=== PATIENT | female | born 1980 | race Caucasian/White ===

== ENCOUNTER → 2018-08-04 | Outpatient (CLI) | payer OTHER ==
[2018-08-04 10:26] LABS: ABSOLUTE EOSINOPHILS 0.2 thou/uL (0.0-0.7); ABSOLUTE MONOCYTES 0.5 thou/uL (0.0-1.2); BASOPHILS 0.4 %; EOSINOPHILS 2.8 %; HEMOGLOBIN 13.1 gm/dL (12.0-15.0); LYMPHOCYTES 35.6 %; MCH 28.5 pg (26.0-34.0); MCHC 33.6 g/dL (28.0-37.0); MCV 84.9 fL (80.0-100.0); MONOCYTES 8.4 %; MPV 6.9 fl. (7.2-11.1); NUCLEATED RBCS 0 /100WBC; PLATELET COUNT* 376 thou/uL (150-400); POLYS 52.8 %; RDW-CV 13.8 % (10.5-14.5); WBC 5.7 thou/uL (4.0-11.0)
[2018-08-04 10:39] LABS: ALBUMIN 3.6 g/dL (3.4-5.0); ALKALINE PHOSPHATASE 82 U/L (46-116); ANION GAP 5 mmol/L (7-16); BUN 12 mg/dL (7-18); CALCIUM 8.7 mg/dL (8.5-10.1); CHLORIDE 103 mmol/L (98-107); CHOLESTEROL 206 mg/dL (<200); CO2 28 mmol/L (21-32); CREATININE 0.6 mg/dL (0.6-1.3); GLUCOSE 87 mg/dL (70-99); HDL CHOLESTEROL 63 mg/dL (>40); LDL CHOLESTEROL 126 mg/dL (<100); POTASSIUM 4.2 mmol/L (3.5-5.1); SERUM ASSESSMENT Clear; SGOT 20 U/L (15-37); SGPT 28 U/L (30-65); SODIUM 136 mmol/L (136-145); TC:HDL 3.3 Ratio (Not establshd); TOTAL BILIRUBIN 0.3 mg/dL (<0.1-1.0); TOTAL PROTEIN 7.5 g/dL (6.4-8.2); TRIGLYCERIDE 88 mg/dL (<150); VLDL 18 mg/dL (<40)
[2018-08-05 16:34] LABS: GLYCOHEMOGLOBIN (HGB A1C) 5.1 % (4.8-5.6)
== END ==
LOC: M.LAB 10:11
PROVIDERS: Nurse Practitioner Family
DX: Z00.01 Encounter for general adult medical examination with abnormal findings (principal); R73.09 Other abnormal glucose; R79.89 Other specified abnormal findings of blood chemistry; R53.83 Other fatigue

== ENCOUNTER → 2018-12-08 | Outpatient (CLI) | payer OTHER | LOC: M.RAD 11-24 09:00 → M.ULTRA 09:00 | DX: N63.10 Unspecified lump in the right breast, unspecified quadrant (principal); K76.0 Fatty (change of) liver, not elsewhere classified; R93.2 Abnormal findings on diagnostic imaging of liver and biliary tract; N94.6 Dysmenorrhea, unspecified; N92.0 Excessive and frequent menstruation with regular cycle; R10.30 Lower abdominal pain, unspecified; Z80.41 Family history of malignant neoplasm of ovary ==

== ENCOUNTER → 2019-05-27 | Outpatient (CLI) | payer OTHER ==
[2019-05-27 10:52] LABS: ABSOLUTE EOSINOPHILS 0.1 thou/uL (0.0-0.7); ABSOLUTE LYMPHOCYTES 2.4 thou/uL (0.8-5.3); ABSOLUTE MONOCYTES 0.5 thou/uL (0.0-1.2); ABSOLUTE NEUTROPHILS 3.9 thou/uL (1.6-8.1); BASOPHILS 0.6 %; EOSINOPHILS 1.9 %; HEMATOCRIT 38.4 % (37.0-47.0); HEMOGLOBIN 12.8 gm/dL (12.0-15.0); LYMPHOCYTES 33.9 %; MCHC 33.4 g/dL (28.0-37.0); MCV 87.1 fL (80.0-100.0); MONOCYTES 7.8 %; NUCLEATED RBCS 0 /100WBC; PLATELET COUNT* 357 thou/uL (150-400); POLYS 55.8 %; RBC 4.41 mil/uL (4.20-5.00); RDW-CV 13.3 % (10.5-14.5)
[2019-05-27 11:05] LABS: ALBUMIN 3.6 g/dL (3.4-5.0); ALKALINE PHOSPHATASE 79 U/L (46-116); ANION GAP 7 mmol/L (7-16); BUN 14 mg/dL (7-18); CALCIUM 8.9 mg/dL (8.5-10.1); CHLORIDE 102 mmol/L (98-107); CHOLESTEROL 188 mg/dL (<200); CO2 28 mmol/L (21-32); CREATININE 0.7 mg/dL (0.6-1.3); GLUCOSE 86 mg/dL (70-99); HDL CHOLESTEROL 54 mg/dL (>40); LDL CHOLESTEROL 116 mg/dL (<100); SERUM ASSESSMENT Clear; SGOT 19 U/L (15-37); SGPT 29 U/L (30-65); SODIUM 137 mmol/L (136-145); TC:HDL 3.5 Ratio (Not establshd); TOTAL BILIRUBIN 0.3 mg/dL (<0.1-1.0); TOTAL PROTEIN 7.3 g/dL (6.4-8.2); TRIGLYCERIDE 93 mg/dL (<150); VLDL 19 mg/dL (<40)
--- NOTE | 2019-05-27 12:52 | EKG ---
[place] [address] ELECTROCARDIOGRAM REPORT Name: TOMMY SANTIAGO [id number] Admission: 05/27/19 Attend Phys: SAM Rodas Discharge: Date of : 80 Report #: [id number] THIS REPORT FOR: //name// [facility] Test Date: 2019-05-27 Test Time: 10:05:11 Pat Name: TOMMY SANTIAGO Department: Room: Gender: F Lobby Porter: NIKHIL : 1980 Requested By: Sydnee Murguia Order Number: [id number] Reading MD: Navi Garcia Measurements Intervals [place] Rate: 67 P: 15 IL: 147 QRS: 49 QRSD: 97 T: 18 QT: 402 QTc: 425 Interpretive Statements Sinus rhythm No previous ECG available for comparison Electronically Signed On 05-27-2019 12:51:57 CDT by Navi Garcia [email or web address] <ELECTRONICALLY SIGNED> By: Ashish Garcia MD, [facility] 05/27/19 1251 1005 1005 Ashish Garcia MD, FACC /EPI
[2019-05-28 02:06] LABS: GLYCOHEMOGLOBIN (HGB A1C) 5.2 % (4.8-5.6)
== END ==
LOC: M.LAB 09:43
PROVIDERS: Nurse Practitioner Family
DX: R07.89 Other chest pain (principal); F41.1 Generalized anxiety disorder; I87.303 Chronic venous hypertension (idiopathic) without complications of bilateral lower extremity; R00.0 Tachycardia, unspecified

== ENCOUNTER 2019-11-05 13:21 | Emergency (ER) | payer OTHER ==
[~2019-11-05] VITALS: Ht 160 cm; Wt 127.0 kg
[2019-11-05] MEDS ORDERED: ZYRTEC10 MG PO (13:34)
[2019-11-05] MEDS ORDERED: ASA81BEC PO (13:34)
[2019-11-05] MEDS ORDERED: LEXAPRO20 MG PO (13:34)
[2019-11-05] MEDS ORDERED: FLONASE 0.05%50 MCG NARES (13:34)
[2019-11-05] MEDS ORDERED: GNP NORWEGIAN1 EACH PO (13:34)
[2019-11-05] MEDS ORDERED: PREDNISONE 5 MG5 M1 PO (13:35)
[2019-11-05] MEDS ORDERED: AUGMENTIN 875-1 EACH PO (13:35)
[2019-11-05] MEDS ORDERED: MUCINEX DM ER1 EACH PO (13:35)
[2019-11-05 14:16] LABS: INFLUENZA A ANTIGEN Negative (Negative); INFLUENZA B ANTIGEN Negative (Negative)
[2019-11-05] MEDS ORDERED: TESSALON PERLE100 MG PO (14:43)
[2019-11-05] MEDS ORDERED: PROMETHAZI6.25 MG/5 PO (14:43)
[2019-11-05] MEDS ORDERED: TYLENOL WITH CO1 TA1 PO (14:43)
[2019-11-05 14:53] VITALS: BP 136/74
== END 2019-11-05 14:54 | disposition home or self-care (01) ==
LOC: M.ERS 13:21
PROVIDERS: Family Medicine
DX: J06.9 Acute upper respiratory infection, unspecified (principal); J45.909 Unspecified asthma, uncomplicated